=== PATIENT | male | born 1950 | race Caucasian/White ===

== ENCOUNTER → 2018-04-26 08:18 | Outpatient (CLI) | payer MEDICARE, OTHER, SELFPAY ==
--- NOTE | 2018-04-26 | DI.ECHO.S_ITS ---
[facility] +---------+ : : [address] [place] : : : : [id number] : : : : Phone: [phone]+ Echocardiogram Report + + :Name: AVA ORNELAS Study Date: 04/26/2018 Height: 68 in : :[facility] Exam Location: [facility] Weight: 246 lb : : Gender: Male BSA: 2.2 m2 : :: 1950 Age: 67 yrs BP: 124/64 mmHg: :Reason For Study: Atrial Fibrillation : :Ordering Physician: Dr. Yoon : :Matilda Performed By: Leonela Barragan : :Referring: WILLIAM MEYER : + + Interpretation Summary The left ventricle is normal in size. Left ventricular systolic function is normal without focal wall motion abnormalities. The ejection fraction is estimated to be 60-65%. Diastolic parameters suggest probable normal left ventricular diastolic function and normal filling pressures. The right ventricle is grossly normal size. The right ventricular systolic function is normal. Both atria are normal in size. There is no significant valvular heart disease. The ascending aorta is normal in size. Procedure: A two-dimensional transthoracic echocardiogram with color flow and Doppler was performed. The echocardiogram was technically difficult due to patient body habitus. Most of the acoustic windows were suboptimal, but the best imaging was obtained from the parasternal window. The apical views were difficult to obtain and are suboptimal in quality. There is no prior echocardiogram noted for this patient. The patient was in normal sinus rhythm during the exam. Left Ventricle: The left ventricle is normal in size. Left ventricular systolic function is normal without focal wall motion abnormalities. The ejection fraction is estimated to be 60-65%. Diastolic parameters suggest probable normal left ventricular diastolic function and normal filling pressures. Right Ventricle: The right ventricle is grossly normal size. The right ventricular systolic function is normal. Atria: Both atria are normal in size. The interatrial septum is intact with no evidence for an atrial septal defect. Mitral Valve: The mitral valve is normal in structure and function. There is trace mitral regurgitation. Aortic Valve: The aortic valve is not well visualized. No aortic regurgitation is present. Tricuspid Valve: The tricuspid valve is normal in structure and function. There is a trace or physiologic amount of tricuspid regurgitation. Pulmonic Valve: The pulmonic valve is not well visualized. There is no significant valvular heart disease. Great Vessels: The ascending aorta is normal in size. The IVC is of normal diameter and collapses greater than 50% with a sniff. This suggests a low right atrial pressure of 3 mm Hg. Pericardium/ Pleura There is no pericardial effusion. There is no pleural effusion. MMode/2D Measurements & Calculations LVIDd: 5.1 cm LVOT diam: 2.0 cm LVIDs: 3.1 cm asc Aorta Diam: 3.2 cm FS: 39.9 % Ao Arch Diam (Prox Trans): 2.8 cm LV louis. diameter/BSA (cm/m^2): 2.3 LV sys. diameter/BSA (cm/m^2): 1.4 LA A2 area: 24.5 cm2 RA long axis: 4.8 cm LA A4 area: 18.3 cm2 RA area: 15.8 cm2 LA length (vol): 5.3 cm RA vol: 44.4 ml LA vol: 71.8 ml RA : 19.9 ml/m2 LA vol index: 32.2 ml/m2 IVC diam: 2.0 cm TAPSE: 2.2 cm Doppler Measurements & Calculations Ao V2 max: 112.2 cm/sec LVOT Max Dominic: 95.5 cm/sec Ao V2 mean: 75.1 cm/sec LV V1 max P.7 mmHg Ao max P.0 mmHg LV V1 VTI: 20.6 cm Ao mean P.5 mmHg SAMMIE(I,D): 2.7 cm2 Ao V2 VTI: 25.0 cm SAMMIE(V,D): 2.8 cm2 sev ratio: 0.82 SAMMIE indexed to BSA (cm^2/m^2): 1.2 MV E max dominic: 79.3 cm/sec SV(LVOT): 67.7 ml MV A max dominic: 63.9 cm/sec MV E/A: 1.2 Med Peak E' Dominic: 6.8 cm/sec E/E' med: 11.6 Lat Peak E' Dominic: 10.3 cm/sec E/E' lat: 7.7 E/e' average: 9.6 MV dec time: 0.14 sec Reading Physician:03:40 PM
[2018-04-26 09:54] LABS: TSH w/ Reflex to FT4 2.17 uIU/mL (0.47-4.68)
== END ==
PROVIDERS: PCP Internal Medicine; Visit Provider Internal Medicine
DX: I48.91 Unspecified atrial fibrillation (principal)
CPT/HCPCS: 36415; 84443; 93306

== ENCOUNTER → 2018-10-18 13:51 | Outpatient (CLI) | payer MEDICARE, OTHER, SELFPAY ==
[2018-10-22 15:02] LABS: PSA Free % 21 % (calc) (> 25); PSA, Total 7.3 ng/mL (< 4.1)
== END ==
PROVIDERS: PCP Internal Medicine; Visit Provider Internal Medicine
DX: R97.20 Elevated prostate specific antigen [PSA] (principal)
CPT/HCPCS: 36415; 84153; 84154

== ENCOUNTER → 2019-01-04 16:07 | Outpatient (CLI) | payer MEDICARE, OTHER, SELFPAY ==
[2019-01-04 17:22] LABS: Prostate Specific Antigen 6.59 ng/mL (0.10-4.00)
== END ==
PROVIDERS: Family Provider Internal Medicine; PCP Internal Medicine; Visit Provider Specialist
DX: N40.1 Benign prostatic hyperplasia with lower urinary tract symptoms (principal)
CPT/HCPCS: 36415; 84153

== ENCOUNTER → 2019-03-11 10:49 | Outpatient (CLI) | payer MEDICARE, OTHER, SELFPAY ==
--- NOTE | 2019-03-11 | DI.RAD.S_ITS ---
PROCEDURE: XR FOOT RT MIN 3V INDICATIONS: RT FOOT PAIN TECHNIQUE: 3 views of the foot were acquired. COMPARISON: Located Within [facility], , FOOT 3V LEFT, 10/10/2016, 7:46. FINDINGS: Bones: No fractures or dislocations. There is mild irregularity of the 5th proximal phalanx distally which appears unchanged from the prior study. There are hypertrophic changes along the plantar lateral aspect of the base of the 1st proximal phalanx which appears increased from the prior study. The findings are suggestive of an enthesophyte. There is minimal degeneration of the 1st metatarsophalangeal and interphalangeal joints. There is mild degeneration dorsally at the talonavicular articulation. Soft tissues: No tibiotalar joint effusion. Achilles tendon appears intact. IMPRESSION: 1. No acute fracture or dislocation. 2. Prominent enthesophyte at the plantar lateral aspect of the 1st proximal phalanx of indeterminate clinical significance. Recommend correlation with clinical exam. 3. Mild degenerative changes as described. Dictated by: Gilberto Johnson M.D. on 03/11/2019 at 10:23 Approved by: Gilberto Johnson M.D. on 03/11/2019 at 10:40
== END ==
PROVIDERS: PCP Internal Medicine; Visit Provider Internal Medicine
DX: M79.671 Pain in right foot (principal)
CPT/HCPCS: 73630

== ENCOUNTER → 2019-03-21 14:15 | Outpatient (CLI) | payer MEDICARE, OTHER, SELFPAY ==
[2019-03-21 15:56] LABS: Prostate Specific Antigen 5.55 ng/mL (0.10-4.00)
== END ==
PROVIDERS: PCP Internal Medicine; Visit Provider Specialist
DX: N40.1 Benign prostatic hyperplasia with lower urinary tract symptoms (principal)
CPT/HCPCS: 36415; 84153

== ENCOUNTER → 2019-12-06 15:52 | Outpatient (CLI) | payer MEDICARE, OTHER, SELFPAY ==
[2019-12-06 16:33] LABS: Add Manual Diff / Slide Review NO; Basophils Absolute Auto 0 /uL (0-100); Basophils Percent Auto 0.5 % (0-2); Eosinophils Absolute Auto 100 /uL (0-450); Eosinophils Percent Auto 1.4 % (2-4); Hematocrit 44.9 % (41-53); Hemoglobin 15.4 g/dL (13.5-17.5); Lymphocytes Absolute Auto 2400 /uL (1100-4500); Lymphocytes Percent Auto 26.9 % (25-40); Mean Corpuscular HGB Conc 34.2 % (30-36); Mean Corpuscular Hemoglobin 30.9 PG (26-34); Mean Corpuscular Volume 90.2 fL (80-100); Monocytes Absolute Auto 600 /uL (0-900); Monocytes Percent Auto 6.3 % (3-14); Neutrophils Absolute Auto 5800 /uL (1500-7000); Neutrophils Percent Auto 64.9 % (50-75); Platelet Count 238 X10^3/uL (150-400); Red Blood Cell Count 4.98 X10^6/uL (4.5-5.9); Red Cell Distribution Width 13.5 % (11.6-14.8)
[2019-12-06 16:39] LABS: Hemoglobin A1C% w Est Avg Glu 6.1 % (4.0-6.0)
[2019-12-06 16:47] LABS: Creatine Kinase 480 U/L (55-170)
[2019-12-06 16:50] LABS: C-Reactive Protein Quant < 0.5 mg/dL (<1.0)
[2019-12-06 16:53] LABS: Erythrocyte Sedimentation Rate 2 MM/HR (0-15)
[2019-12-06 17:52] LABS: Free T4, Direct Thyroxine 0.88 ng/dL (0.78-2.19)
[2019-12-06 18:06] LABS: Thyroid Stimulating Hormone 0.965 uIU/mL (0.47-4.68)
== END ==
PROVIDERS: PCP Internal Medicine; Referring Provider Student in an Organized Health Care Education/Training Program; Visit Provider Student in an Organized Health Care Education/Training Program
DX: R29.898 Other symptoms and signs involving the musculoskeletal system (principal); R53.83 Other fatigue; R73.01 Impaired fasting glucose
CPT/HCPCS: 36415; 82550; 83036; 84439; 84443; 85025; 85651; 86140

== ENCOUNTER → 2019-12-15 11:09 | Outpatient (CLI) | payer MEDICARE, OTHER, SELFPAY ==
[2019-12-15 15:08] LABS: HEMOLYSIS < 15 (0-50)
[2019-12-15 15:22] LABS: Alanine Aminotransferase 29 IU/L (<50); Albumin 4.1 g/dL (3.5-5.0); Albumin Globulin Ratio 1.6 (1.0-2.8); Alkaline Phosphatase 39 U/L (38-126); Aspartate Aminotransferase 23 IU/L (17-59); BUN Creatinine Ratio 20.2 (6-22); Bilirubin Total 1.5 mg/dL (0.2-1.3); Blood Urea Nitrogen 20 mg/dL (9-20); Calcium 9.7 mg/dL (8.4-10.2); Carbon Dioxide 32 mmol/L (22-32); Chloride 103 mmol/L (98-107); Estimated Glomerular Filt Rate > 60.0 mL/min (>60); Globulin 2.5 g/dL (1.7-4.1); Glucose 131 mg/dL (80-110); Potassium 4.5 mmol/L (3.4-5.1); Sodium 139 mmol/L (137-145); Total Protein 6.6 g/dL (6.3-8.2)
== END ==
PROVIDERS: PCP Internal Medicine; Referring Provider Internal Medicine; Visit Provider Internal Medicine
DX: R53.83 Other fatigue (principal); R29.898 Other symptoms and signs involving the musculoskeletal system
CPT/HCPCS: 36415; 80053; 84153

== ENCOUNTER → 2020-04-11 14:50 | Outpatient (ROUT) | payer MEDICARE, OTHER, SELFPAY ==
[2020-04-11 15:35] LABS: Prostate Specific Antigen 5.35 ng/mL (0.10-4.00)
== END ==
PROVIDERS: PCP Internal Medicine; Visit Provider Internal Medicine
DX: R97.20 Elevated prostate specific antigen [PSA] (principal)
CPT/HCPCS: 84153

== ENCOUNTER → 2020-04-23 08:30 | Outpatient (CLI) | payer MEDICARE, OTHER, SELFPAY ==
[2020-04-23] MEDS: COVID-19 VACC #1, MRNA(MOD) 100 MCG/0.5 ML VIAL IM (08:37)
== END ==
PROVIDERS: PCP Internal Medicine; Visit Provider Internal Medicine
DX: Z23 Encounter for immunization (principal)
CPT/HCPCS: 0011A; 91301

== ENCOUNTER 2020-05-21 08:55 | Emergency (ER) | payer MEDICARE, OTHER, SELFPAY ==
[2020-05-21 09:00] VITALS: BP 148/69; PULSE 62; RESP 16; TEMP 36.9; O2SAT 99; BMI 36.5
--- NOTE | 2020-05-21 09:04 | DI.RAD.S_ITS ---
PROCEDURE: XR FOOT RT MIN 3V INDICATIONS: twisted foot TECHNIQUE: 3 views of the foot were acquired. COMPARISON: [facility], CR, XR FOOT RT MIN 3V, 03/11/2019, 10:50. FINDINGS: Bones: No acute fractures or dislocations. No suspicious bony lesions. Stable appearance of prominent hypertrophic changes involving the plantar, lateral aspect of the right 1st toe proximal phalanx. Stable irregularity of the distal margin of the right 5th proximal phalanx. Stable enthesopathy of the plantar calcaneus. Chronic calcification over the posterior calcaneus. Stable degenerative changes of the 1st metatarsophalangeal joint. Soft tissues: No tibiotalar joint effusion. Achilles tendon appears normal. IMPRESSION: 1. Right foot without acute fracture or dislocation. 2. Stable radiographic appearance of right foot degenerative change and enthesopathy of the calcaneus. If there is persistent clinical concern for occult fracture given adequate mechanism of injury, consider repeat imaging in 10-14 days. Dictated by: Praneeth Mcgee M.D. on 05/21/2020 at 9:31 Approved by: Praneeth Mcgee M.D. on 05/21/2020 at 9:35
--- NOTE | 2020-05-21 09:09 | PC.NURSE ---
No swelling noted. Circulation and sensation intact
--- NOTE | 2020-05-21 09:25 | ED_ITS ---
HPI - Extremity Injury (Lower) General Chief Complaint: Extremity Injury, Lower Stated Complaint: right foot injury Time Seen by Provider: 05/21/20 09:00 Source: patient Mode of arrival: Wheelchair Limitations: no limitations History of Present Illness HPI Narrative: Patient is a 69-year-old male with history of atrial fibrillation on Eliquis who presents with right foot pain. He states he tripped last night going to the restroom. He has had some plantar fasciitis in that right foot he has been dealing with he stepped discharge 0 tripped and twisted his foot. He did not hit his head or have any other injury. He is complaining of mid foot pain denies numbness tingling or weakness. Unable to bear weight. he took some of his 's Percocet he had some mild relief MD complaint: foot injury Onset (ago): hour(s) Place: home Severity: moderate Related Data Home Medications Medication Instructions Recorded Confirmed [hytrim] #0 06/11/17 timolol maleate [Timoptic] #0 06/11/17 Previous Rx's Medication Instructions Recorded hydrocodone-acetaminophen 1 tab PO Q6H PRN #10 tab 05/21/20 Allergies Allergy/AdvReac Type Severity Reaction Status Date / Time No Known Drug Allergies Allergy Verified 05/21/20 09:05 Review of Systems Review of Systems Narrative: GENERAL: Denies chills,fever HEENT: Denies throat pain RESPIRATORY: Denies dyspnea, cough, wheezing CARDIOVASCULAR: Denies chest pain, palpitations GASTROINTESTINAL: Denies nausea, vomiting MUSCULOSKELETAL: See HPI SKIN: No rash, no laceration, no pruritus NEUROLOGIC: Denies weakness, dizziness, headache, numbness 8 point review of systems is negative except for those stated above and HPI Patient History Social History Smoking Status: Unknown if ever smoked Smoking Status: Unknown if ever smoked alcohol intake frequency: holidays/special occasions only Substance Use Type: marijuana Exam Initial Vital Signs Initial Vital Signs: Vital Signs Temperature 98.4 F 05/21/20 09:00 Pulse Rate 62 05/21/20 09:00 Respiratory Rate 16 05/21/20 09:00 Blood Pressure 148/69 H 05/21/20 09:00 Pulse Oximetry 99 05/21/20 09:00 GENERAL: Well-appearing, well-nourished and in no acute distress. CARDIOVASCULAR: peripheral pulses in tact, cap refill <2 sec RESPIRATORY: No respiratory distress, speaks in full sentences without difficulty EXTREMITIES: Normal range of motion, no clubbing or edema. Neurovascularly intact Right lower extremity knee is nontender his ankle nontender good flexion extension midfoot pain to palpation minimal swelling, strong distal pedal pulse is able to flex and extend great toe NEUROLOGICAL: Cranial nerves II through XII grossly intact. Normal gait and speech. SKIN: Warm, dry, no petechiae, no rashes or lesions. Course Orders Ordered: Discontinued Medications Hydrocodone Bitart/Acetaminophen (Hydrocodone/Acet 5/325 Tablet) 1 tab PO NOW ONE Stop: 05/21/20 09:58 Last Admin: 05/21/20 10:00 Dose: 1 tab Documented by: ALEJO Vital Signs Vital signs: Vital Signs - 8 hr 05/21/20 09:00 Temperature 98.4 F Pulse Rate 62 Respiratory Rate 16 Blood Pressure 148/69 H Pulse Oximetry 99 MDM - Extremity Injury (Lower) Imaging Data Extremity x-ray #1: Radiologist's Impression: PROCEDURE: XR FOOT RT MIN 3V INDICATIONS: twisted foot TECHNIQUE: 3 views of the foot were acquired. COMPARISON: [facility], , XR FOOT RT MIN 3V, 03/11/2019, 10:50. FINDINGS: Bones: No acute fractures or dislocations. No suspicious bony lesions. Stable appearance of prominent hypertrophic changes involving the plantar, lateral aspect of the right 1st toe proximal phalanx. Stable irregularity of the distal margin of the right 5th proximal phalanx. Stable enthesopathy of the plantar calcaneus. Chronic calcification over the posterior calcaneus. Stable degenerative changes of the 1st metatarsophalangeal joint. Soft tissues: No tibiotalar joint effusion. Achilles tendon appears normal. IMPRESSION: 1. Right foot without acute fracture or dislocation. 2. Stable radiographic appearance of right foot degenerative change and enthesopathy of the calcaneus. If there is persistent clinical concern for occult fracture given adequate mecha nism of injury, consider repeat imaging in 10-14 days. Dictated by: Praneeth Mcgee M.D. on 05/21/2020 at 9:31 Discharge Plan Departure Patient Disposition: Home Clinical Impression: Right foot sprain Qualifiers: Encounter type: initial encounter Qualified Code(s): S93.602K - Unspecified sprain of right foot, initial encounter Instructions: DI for Foot Sprain Activity Restrictions/Additional Instructions: *You have been diagnosed with right foot sprain *What to do: Wear shoe and use crutches as needed. At this time is there is no broken bone. You may increase weight-bearing as tolerated. Ice 20 in 30 minutes at a time, elevate as needed *Continue to take medications as directed [place] 1 tablet every 6 hours only if needed for severe pain--> SENT TO [facility] *Follow up with your primary care provider in 2-3 days *Return to ER if you should have increasing pain numbness tingling or weakness or any new, worsening or concerning symptoms Prescriptions: New hydrocodone-acetaminophen 5-325 mg tablet 1 tab PO Q6H PRN (Reason: pain) Qty: 10 RF: 0 No Action timolol maleate [Timoptic] 0.25 % drops Qty: 0 RF: 0 [hytrim] Qty: 0 RF: 0 Referrals: Car Grey MD [Primary Care Provider] -
[2020-05-21] MEDS: HYDROCODONE/ACET 5/325 TABLET 1 TAB PO (10:00)
== END 2020-05-21 10:07 | disposition home or self-care (01) ==
PROVIDERS: Emergency Provider Emergency Medicine; PCP Internal Medicine
DX: S93.601A Unspecified sprain of right foot, initial encounter (principal); W18.40XA Slipping, tripping and stumbling without falling, unspecified, initial encounter; I48.91 Unspecified atrial fibrillation; Z79.01 Long term (current) use of anticoagulants; Z23 Encounter for immunization
CPT/HCPCS: 0012A; 73630; 99283

== ENCOUNTER → 2020-05-21 10:12 | Outpatient (CLI) | payer MEDICARE, OTHER, SELFPAY ==
[2020-05-21] MEDS: COVID-19 VACC #2, MRNA(MOD) 100 MCG/0.5 ML VIAL IM (10:26)
== END ==
PROVIDERS: PCP Internal Medicine; Visit Provider Internal Medicine
DX: Z23 Encounter for immunization (principal)
CPT/HCPCS: 0012A; 91301

== ENCOUNTER → 2020-10-29 09:47 | Outpatient (CLI) | payer MEDICARE, OTHER, SELFPAY ==
--- NOTE | 2020-10-29 | DI.US.S_ITS ---
PROCEDURE: US THYROID INDICATIONS: THYROID NODULE TECHNIQUE: Real-time scanning was performed of the thyroid gland, with image documentation. COMPARISON: None. FINDINGS: Right: Thyroid lobe measures 4.1 x 1.9 x 1.2 cm, and is mildly heterogeneous in echotexture. Left: Thyroid lobe measures 3.7 x 1.4 x 1.5 cm, and is homogenous in echotexture. Isthmus: 6.0 mm thick. Nodule number: 1 Location: Right inferior Size: 1.2 x 1.41.3 cm. Composition: Solid Echogenicity: Isoechoic Shape: wider than tall. Margins: Smooth Echogenic foci: None Total points: 3 ACR TI-RADS category: Mildly suspicious. IMPRESSION: Mildly suspicious 1.4 cm right thyroid nodule. Recommend continued followup ultrasound as detailed below. ACR TI-RADS definitions and recommendations: TI-RADS 1 (benign): 0 points. FNA not needed. TI-RADS 2 (not suspicious): 2 points. FNA not needed. TI-RADS 3 (mildly suspicious): 3 points. * FNA if 2.5 cm or larger, follow up if 1.5 cm or larger (at 1, 3, and 5 years). TI-RADS 4 (moderately suspicious): 4-6 points. * FNA if 1.5 cm or larger, follow up if 1 cm or larger (at 1, 2, 3, and 5 years). TI-RADS 5 (highly suspicious): 7 points or more. * FNA if 1 cm or larger, follow up if 0.5 cm or larger (every year for 5 years). Dictated by: Giovani JAQUEZ Interpreted: Bijan Deras MD on 10/29/2020 at 11:47 Transcribed by: TONI on 10/29/2020 at 11:48 Approved by: Bijan Deras M.D. on 10/29/2020 at 15:38
== END ==
PROVIDERS: PCP Internal Medicine; Referring Provider Internal Medicine; Visit Provider Internal Medicine
DX: E04.1 Nontoxic single thyroid nodule (principal)
CPT/HCPCS: 76536

== ENCOUNTER → 2021-08-04 17:15 | Outpatient (CLI) | payer MEDICARE, OTHER, SELFPAY ==
[2021-08-04 17:54] LABS: Hematocrit 44.4 % (41-53); Hemoglobin 15.6 g/dL (13.5-17.5); Mean Corpuscular HGB Conc 35.1 % (30-36); Mean Corpuscular Hemoglobin 31.3 PG (26-34); Mean Corpuscular Volume 89.2 fL (80-100); Platelet Count 223 X10^3/uL (150-400); Red Blood Cell Count 4.97 X10^6/uL (4.5-5.9); Red Cell Distribution Width 13.3 % (11.6-14.8); White Blood Cell Count 6.7 X10^3/uL (4.5-11.0)
[2021-08-04 18:13] LABS: Hemoglobin A1C% w Est Avg Glu 5.8 % (4.0-6.0)
[2021-08-04 18:14] LABS: Alanine Aminotransferase 29 IU/L (<50); Albumin 4.8 g/dL (3.5-5.0); Albumin Globulin Ratio 1.8 (1.0-2.8); Alkaline Phosphatase 46 U/L (38-126); Aspartate Aminotransferase 30 IU/L (17-59); BUN Creatinine Ratio 22.8 (6-22); Bilirubin Total 1.4 mg/dL (0.2-1.3); Blood Urea Nitrogen 21 mg/dL (9-20); C-Reactive Protein Quant < 0.5 mg/dL (<1.0); Calcium 9.2 mg/dL (8.4-10.2); Carbon Dioxide 25 mmol/L (22-32); Chloride 108 mmol/L (98-107); Cholesterol 213 mg/dL (140-199); Creatine Kinase 224 U/L (55-170); Estimated Glomerular Filt Rate > 60 mL/min (>60); Globulin 2.6 g/dL (1.7-4.1); Glucose 128 mg/dL (80-110); HDL Cholesterol 62 mg/dL (40-60); HEMOLYSIS 18 (0-50); LDL Cholesterol Calculated 118 mg/dL (<100); Sodium 140 mmol/L (137-145); Total Protein 7.4 g/dL (6.3-8.2); Triglycerides 166 mg/dL (35-150)
[2021-08-04 18:35] LABS: Erythrocyte Sedimentation Rate 3 MM/HR (0-15)
[2021-08-04 18:41] LABS: TSH w/ Reflex to FT4 1.42 uIU/mL (0.47-4.68); Testosterone 348 ng/dL (71.8-623)
== END ==
PROVIDERS: PCP Internal Medicine; Referring Provider Internal Medicine; Visit Provider Internal Medicine
DX: R53.83 Other fatigue (principal); R73.01 Impaired fasting glucose; N13.8 Other obstructive and reflux uropathy; R06.00 Dyspnea, unspecified; R29.898 Other symptoms and signs involving the musculoskeletal system; N40.1 Benign prostatic hyperplasia with lower urinary tract symptoms
CPT/HCPCS: 36415; 80053; 80061; 82550; 83036; 84153; 84403; 84443; 85027; 85651; 86140

== ENCOUNTER → 2021-08-15 13:08 | Outpatient (CLI) | payer MEDICARE, OTHER, SELFPAY ==
--- NOTE | 2021-08-15 13:11 | DI.RAD.S_ITS ---
PROCEDURE: XR LUMBAR SPINE 2-3V INDICATIONS: lumbar stenosis symptoms/back pain/leg weakness TECHNIQUE: 3 views of the lumbar spine were acquired. COMPARISON: None. FINDINGS: Bones: 5 [id number] vertebrae are present. There is normal bony alignment. No vertebral body compression fractures. No suspicious bony lesions. There are multilevel anterior osteophytes and facet sclerosis of the lower lumbar spine. Soft tissues: Overlying bowel gas pattern is normal. No suspicious soft tissue calcifications. IMPRESSION: Degenerative change. No compression deformities. Dictated by: Gracy Harvey M.D. on 08/15/2021 at 14:24 Approved by: Gracy Harvey M.D. on 08/15/2021 at 14:25
--- NOTE | 2021-08-15 13:48 | DI.MRI.S_ITS ---
PROCEDURE: MR LUMBAR SPINE WO CON INDICATIONS: lumbar stenosis symptoms/back pain/leg weakness TECHNIQUE: Noncontrast sagittal T1 spin echo and T2 fast echo, sagittal STIR, and T2 fast spin echo through the lumbar spine. In cases with scoliosis, additional coronal T2 fast spin echo may be performed. COMPARISON: [facility], CR, XR LUMBAR SPINE 2-3V, 08/15/2021, 13:30. FINDINGS: Image quality: Excellent. Alignment and Curvature: There is normal bony alignment. Bone Marrow: Marrow is of normal overall signal. No acute vertebral body compression fractures. Spinal Cord: Conus medullaris terminates at the L1 level. Visualized cord demonstrates normal signal and size. Paraspinous Soft Tissues: No paravertebral masses. T12-L1: Normal appearance. L1-L2: Normal appearance. L2-L3: Normal appearance. L3-L4: The disc height is well-preserved. Loss of disc signal is seen at this level. Mild to moderate disc bulge is seen. Prior postoperative change can be seen, with left hemilaminectomy. Moderate left-sided facet hypertrophy is seen. There is at least moderate right-sided and moderate to severe left-sided neural narrowing. There is a degree of compression seen upon the exiting L3 nerve roots. Mild central canal narrowing is seen. L4-L5: The disc height is well-preserved. Loss of disc signal is seen at this level. Moderate generalized disc bulge is seen. At least moderate facet hypertrophy is seen. There is moderate to severe bilateral neural foraminal narrowing seen, with an associated a degree of compression seen upon the exiting nerve roots. Mild to moderate central canal narrowing is seen. L5-S1: The disc height is well-preserved. Loss of disc signal is seen at this level. Moderate generalized disc bulge is seen. There is a focal annular fissure seen posteriorly. Moderate facet joint hypertrophy is seen. There is moderate to severe bilateral neural foraminal narrowing seen, with an associated a degree of compression seen upon the exiting nerve roots. Minimal central canal narrowing is seen. IMPRESSION: Prior L3-L4 postoperative change, with left hemilaminectomy. Several sites of significant neural foraminal narrowing can be seen, with associated exiting nerve root compression. Annular fissure seen posteriorly at L5-S1. Dictated by: Jesse Gutierrez M.D. on 08/15/2021 at 13:30 Approved by: Jesse Gutierrez M.D. on 08/15/2021 at 13:33
== END ==
PROVIDERS: PCP Internal Medicine; Referring Provider Internal Medicine; Visit Provider Internal Medicine
DX: M48.062 Spinal stenosis, lumbar region with neurogenic claudication (principal); R53.1 Weakness; M47.816 Spondylosis without myelopathy or radiculopathy, lumbar region
CPT/HCPCS: 72100; 72148

== ENCOUNTER → 2022-07-13 14:44 | Outpatient (CLI) | payer MEDICARE, OTHER, SELFPAY ==
[2022-07-15 06:37] LABS: Labcorp Hemoglobin (Hb) A1c 6.3 % (4.8-5.6)
[2022-07-15 07:36] LABS: PSA Free % 25.7 % (.); PSA, Total 8.1 ng/mL (0.0-4.0)
== END ==
PROVIDERS: PCP Internal Medicine; Referring Provider Emergency Medicine; Visit Provider Emergency Medicine
DX: R73.9 Hyperglycemia, unspecified (principal); N40.1 Benign prostatic hyperplasia with lower urinary tract symptoms
CPT/HCPCS: 36415; 83036; 84153; 84154

== ENCOUNTER → 2022-10-01 10:41 | Outpatient (CLI) | payer MEDICARE, OTHER, SELFPAY ==
[2022-10-01 12:39] LABS: BUN Creatinine Ratio 19.1 (6-22); Blood Urea Nitrogen 17 mg/dL (9-20); Calcium 9.3 mg/dL (8.4-10.2); Carbon Dioxide 24 mmol/L (22-32); Chloride 105 mmol/L (98-107); Estimated Glomerular Filt Rate > 60 mL/min (>60); Glucose 144 mg/dL (80-110); HEMOLYSIS < 15 (0-50); Potassium 4.2 mmol/L (3.4-5.1); Sodium 137 mmol/L (137-145)
[2022-10-01 13:02] LABS: Prostate Specific Antigen 4.76 ng/mL (0.10-4.00)
== END ==
PROVIDERS: PCP Internal Medicine; Referring Provider Internal Medicine; Visit Provider Internal Medicine
DX: N40.1 Benign prostatic hyperplasia with lower urinary tract symptoms (principal); N13.8 Other obstructive and reflux uropathy; R97.20 Elevated prostate specific antigen [PSA]
CPT/HCPCS: 36415; 80048; 84153

== ENCOUNTER → 2023-06-09 11:59 | Outpatient (CLI) | payer MEDICARE, OTHER, SELFPAY ==
[2023-06-09 12:50] LABS: Hematocrit 43.2 % (41-53); Hemoglobin 14.8 g/dL (13.5-17.5); Mean Corpuscular HGB Conc 34.2 % (30-36); Mean Corpuscular Hemoglobin 30.6 PG (26-34); Mean Corpuscular Volume 89.4 fL (80-100); Platelet Count 182 X10^3/uL (150-400); Red Blood Cell Count 4.83 X10^6/uL (4.5-5.9); Red Cell Distribution Width 13.4 % (11.6-14.8); White Blood Cell Count 5.3 X10^3/uL (4.5-11.0)
[2023-06-09 12:58] LABS: Hemoglobin A1C% w Est Avg Glu 6.4 % (4.0-6.0)
[2023-06-09 13:28] LABS: Alanine Aminotransferase 33 IU/L (<50); Albumin 4.3 g/dL (3.5-5.0); Albumin Globulin Ratio 1.6 (1.0-2.8); Alkaline Phosphatase 39 U/L (38-126); Aspartate Aminotransferase 27 IU/L (17-59); BUN Creatinine Ratio 15.9 (6-22); Bilirubin Total 2.3 mg/dL (0.2-1.3); Blood Urea Nitrogen 13 mg/dL (9-20); Calcium 9.2 mg/dL (8.4-10.2); Carbon Dioxide 28 mmol/L (22-32); Chloride 108 mmol/L (98-107); Cholesterol 120 mg/dL (140-199); Estimated Glomerular Filt Rate > 60 mL/min (>60); Globulin 2.7 g/dL (1.7-4.1); Glucose 149 mg/dL (80-110); HDL Cholesterol 56 mg/dL (40-60); HEMOLYSIS < 15 (0-50); LDL Cholesterol Calculated 46 mg/dL (<100); Potassium 4.2 mmol/L (3.4-5.1); Sodium 138 mmol/L (137-145); Triglycerides 88 mg/dL (35-150)
[2023-06-09 13:56] LABS: Prostate Specific Antigen 6.58 ng/mL (0.10-4.00)
[2023-06-09 13:57] LABS: TSH w/ Reflex to FT4 0.88 uIU/mL (0.47-4.68)
[2023-06-09 16:05] LABS: Creatinine Urine Random 70.9 mg/dL
[2023-06-09 16:09] LABS: Microalbumi Creatinin Ratio Ur 101.5 ug/mg CR (<30); Microalbumin Urine Random 7.2 mg/dL (0-1.6)
== END ==
PROVIDERS: PCP Internal Medicine; Referring Provider Internal Medicine; Visit Provider Internal Medicine
DX: R73.01 Impaired fasting glucose (principal); I48.0 Paroxysmal atrial fibrillation; R97.20 Elevated prostate specific antigen [PSA]
CPT/HCPCS: 36415; 80053; 80061; 82043; 82570; 83036; 84153; 84443; 85027

== ENCOUNTER → 2023-09-21 12:26 | Outpatient (CLI) | payer MEDICARE, OTHER, SELFPAY ==
[2023-09-21 13:07] LABS: Hemoglobin A1C% w Est Avg Glu 5.7 % (4.0-6.0)
[2023-09-21 13:21] LABS: BUN Creatinine Ratio 16.3 (6-22); Blood Urea Nitrogen 14 mg/dL (9-20); Calcium 9.1 mg/dL (8.4-10.2); Carbon Dioxide 27 mmol/L (22-32); Chloride 107 mmol/L (98-107); Estimated Glomerular Filt Rate > 60 mL/min (>60); Glucose 123 mg/dL (80-110); HEMOLYSIS < 15 (0-50); Potassium 4.4 mmol/L (3.4-5.1); Sodium 140 mmol/L (137-145)
== END ==
PROVIDERS: PCP Internal Medicine; Referring Provider Internal Medicine; Visit Provider Internal Medicine
DX: E11.69 Type 2 diabetes mellitus with other specified complication (principal); E78.5 Hyperlipidemia, unspecified
CPT/HCPCS: 36415; 80048; 83036

== ENCOUNTER → 2024-05-18 09:28 | Outpatient (CLI) | payer MEDICARE, OTHER, SELFPAY ==
[2024-05-18 12:25] LABS: Hemoglobin A1C% w Est Avg Glu 4.9 % (4.0-6.0)
[2024-05-18 12:30] LABS: Blood Urea Nitrogen 23 mg/dL (9-20); Carbon Dioxide 26 mmol/L (22-32); Chloride 104 mmol/L (98-107); Estimated Glomerular Filt Rate > 60 mL/min (>60); Glucose 96 mg/dL (80-110); HEMOLYSIS < 15 (0-50); Potassium 4.5 mmol/L (3.4-5.1); Sodium 139 mmol/L (137-145)
[2024-05-18 13:04] LABS: Prostate Specific Antigen 7.18 ng/mL (0.10-4.00)
[2024-05-18 15:57] LABS: Creatinine Urine Random 126.27 mg/dL; Microalbumin Urine Random 7.8 mg/dL (0-1.6)
== END ==
LOC: LAB 09:29
PROVIDERS: PCP Internal Medicine; Referring Provider Internal Medicine; Visit Provider Internal Medicine
DX: E11.69 Type 2 diabetes mellitus with other specified complication (principal); R97.20 Elevated prostate specific antigen [PSA]; E78.5 Hyperlipidemia, unspecified; I48.0 Paroxysmal atrial fibrillation
CPT/HCPCS: 36415; 80048; 82043; 82570; 83036; 84153

== ENCOUNTER → 2024-08-22 08:21 | Outpatient (CLI) | payer MEDICARE, OTHER, SELFPAY ==
[2024-08-22 10:52] LABS: Prostate Specific Antigen 7.99 ng/mL (0.10-4.00)
== END ==
PROVIDERS: PCP Internal Medicine; Referring Provider Internal Medicine; Visit Provider Internal Medicine
DX: R97.20 Elevated prostate specific antigen [PSA] (principal)
CPT/HCPCS: 36415; 84153

== ENCOUNTER → 2024-10-25 07:50 | Outpatient (CLI) | payer MEDICARE, OTHER, SELFPAY ==
[2024-10-25 08:38] LABS: Hemoglobin A1C% w Est Avg Glu 4.8 % (4.0-6.0)
[2024-10-25 08:54] LABS: Blood Urea Nitrogen 17 mg/dL (9-20); Calcium 9.1 mg/dL (8.4-10.2); Carbon Dioxide 22 mmol/L (22-32); Chloride 107 mmol/L (98-107); Cholesterol 118 mg/dL (140-199); Estimated Glomerular Filt Rate > 60 mL/min (>60); Glucose 101 mg/dL (70-99); HDL Cholesterol 64 mg/dL (40-60); HEMOLYSIS < 15 (0-50); Potassium 4.1 mmol/L (3.4-5.1); Sodium 137 mmol/L (137-145); Triglycerides 64 mg/dL (35-150)
[2024-10-25 09:20] LABS: TSH w/ Reflex to FT4 1.46 uIU/mL (0.47-4.68)
[2024-10-25 09:46] LABS: Microalbumi Creatinin Ratio Ur 45.0 ug/mg CR (<30)
== END ==
LOC: LAB 07:51
PROVIDERS: PCP Internal Medicine; Referring Provider Internal Medicine; Visit Provider Internal Medicine
DX: E11.29 Type 2 diabetes mellitus with other diabetic kidney complication (principal); R80.9 Proteinuria, unspecified; E78.2 Mixed hyperlipidemia; E78.5 Hyperlipidemia, unspecified; E66.9 Obesity, unspecified; I48.0 Paroxysmal atrial fibrillation
CPT/HCPCS: 36415; 80048; 80061; 82043; 82570; 83036; 84443; 84450

== ENCOUNTER → 2024-12-26 17:06 | Outpatient (CLI) | payer MEDICARE, OTHER, SELFPAY ==
[2024-12-26 18:01] LABS: Add Manual Diff / Slide Review NO; Hematocrit 42.3 % (41-53); Hemoglobin 14.7 g/dL (13.5-17.5); Lymphocytes Absolute Auto 2300 /uL (1100-4500); Mean Corpuscular HGB Conc 34.8 % (30-36); Mean Corpuscular Hemoglobin 30.8 PG (26-34); Mean Corpuscular Volume 88.5 fL (80-100); Platelet Count 377 X10^3/uL (150-400)
[2024-12-26 18:25] LABS: Blood Urea Nitrogen 18 mg/dL (9-20); Calcium 9.4 mg/dL (8.4-10.2); Carbon Dioxide 28 mmol/L (22-32); Chloride 102 mmol/L (98-107); Estimated Glomerular Filt Rate > 60 mL/min (>60); Glucose 102 mg/dL (70-99); HEMOLYSIS < 15 (0-50); Potassium 4.5 mmol/L (3.4-5.1); Sodium 137 mmol/L (137-145)
== END ==
PROVIDERS: PCP Internal Medicine; Referring Provider Internal Medicine Cardiovascular Disease; Visit Provider Internal Medicine Cardiovascular Disease
DX: I48.0 Paroxysmal atrial fibrillation (principal)
CPT/HCPCS: 36415; 80048; 85025

== ENCOUNTER → 2025-01-31 13:08 | Outpatient (CLI) | payer MEDICARE, OTHER, SELFPAY ==
[2025-01-31 13:28] LABS: Appearance Urine UA CLOUDY; Bilirubin Urine UA NEGATIVE (NEGATIVE); Color Urine UA YELLOW; Glucose Urine UA NEGATIVE (Negative); Ketones Urine UA NEGATIVE (NEGATIVE); Leukocyte Esterase Urine UA 2+ (NEGATIVE); Nitrite Urine UA NEGATIVE (Negative); Occult Blood Urine UA 3+ (Negative); Protein Urine UA 3+ (Negative); Specific Gravity Urine UA 1.025 (1.000-1.035); Urobilinogen Urine UA 1.0 E.U./dL (0.2); pH Urine UA 6.0 (4.5-8.0)
== END ==
PROVIDERS: PCP Internal Medicine; Referring Provider Internal Medicine; Visit Provider Internal Medicine
DX: R30.0 Dysuria (principal)
CPT/HCPCS: 81001; 87077; 87086

== ENCOUNTER → 2025-02-06 15:11 | Outpatient (CLI) | payer MEDICARE, OTHER, SELFPAY ==
[2025-02-06 17:24] LABS: Appearance Urine UA SL CLOUDY; Bilirubin Urine UA NEGATIVE (NEGATIVE); Color Urine UA YELLOW; Glucose Urine UA NEGATIVE (Negative); Ketones Urine UA NEGATIVE (NEGATIVE); Leukocyte Esterase Urine UA 1+ (NEGATIVE); Nitrite Urine UA NEGATIVE (Negative); Occult Blood Urine UA 3+ (Negative); Protein Urine UA 2+ (Negative); Specific Gravity Urine UA >=1.030 (1.000-1.035); Urobilinogen Urine UA 0.2 E.U./dL (0.2); pH Urine UA 6.0 (4.5-8.0)
[2025-02-06 17:35] LABS: Culture Indicated Urine Specimen Cultured
== END ==
PROVIDERS: PCP Internal Medicine; Referring Provider Internal Medicine; Visit Provider Internal Medicine
DX: R35.0 Frequency of micturition (principal); Z87.440 Personal history of urinary (tract) infections
CPT/HCPCS: 81001; 87077; 87086

== ENCOUNTER → 2025-02-19 10:02 | Outpatient (CLI) | payer MEDICARE, OTHER, SELFPAY ==
[2025-02-19 11:52] LABS: Appearance Urine UA CLOUDY; Bilirubin Urine UA NEGATIVE (NEGATIVE); Color Urine UA YELLOW; Glucose Urine UA NEGATIVE (Negative); Ketones Urine UA NEGATIVE (NEGATIVE); Leukocyte Esterase Urine UA 1+ (NEGATIVE); Nitrite Urine UA POSITIVE (Negative); Occult Blood Urine UA 3+ (Negative); Protein Urine UA 2+ (Negative); Specific Gravity Urine UA >=1.030 (1.000-1.035); Urobilinogen Urine UA 1.0 E.U./dL (0.2); pH Urine UA 5.5 (4.5-8.0)
[2025-02-19 12:00] LABS: Culture Indicated Urine Specimen Cultured
== END ==
PROVIDERS: PCP Internal Medicine; Referring Provider Internal Medicine; Visit Provider Internal Medicine
DX: R30.0 Dysuria (principal); Z87.440 Personal history of urinary (tract) infections
CPT/HCPCS: 81001; 87077; 87086